=== PATIENT | female | born 1950 | race Caucasian/White ===

== ENCOUNTER 2016-11-08 21:36 | Emergency (ER) | payer OTHER ==
--- NOTE | 2016-11-08 22:50 | PROVIDER DOCUMENTATION ---
HPI-EENT General - General Source: patient - History of Present Illness-EENT General EENT Location: reports: facial Quality of Pain: reports: aching, pressure Severity: reports: severe Onset/Duration: reports: other (2 weeks) Timing: reports: still present Prearrival Treatment: Initiated prescription meds Associated Symptoms: reports: nasal congestion/drainage. denies: cough, sore throat <Hero Tian - Last Filed: 11/08/16 23:01> <Get Holt - Last Filed: 11/08/16 23:03> - General Chief Complaint: Headache Stated Complaint: HEADACHE Time Seen by Provider: 11/08/16 22:37 Allergies/Adverse Reactions: Patient Allergies Allergy/AdvReac Type Severity Reaction Status Date / Time Iodinated Contrast Media - Allergy Severe ANAPHYLAXIS Verified 11/08/16 22:37 Oral and Sulfa (Sulfonamide Allergy Severe "MAKES ME Verified 11/08/16 22:37 Antibiotics) VERY ILL" codeine Allergy Unknown Verified 11/08/16 22:37 Penicillins AdvReac Severe BREAKS ME Verified 11/08/16 22:37 OUT; ITCHING phenytoin sodium * AdvReac Severe "MAKES ME Verified 11/08/16 22:37 [From Dilantin] CRAZY" phenytoin sodium extended * AdvReac Severe "MAKES ME Verified 11/08/16 22:37 [From Dilantin] CRAZY" cimetidine [From Tagamet] AdvReac Unknown Verified 11/08/16 22:37 cimetidine HCl * AdvReac Unknown Verified 11/08/16 22:37 [From Tagamet] Home Medications: Home Medication List Medication Instructions Recorded Confirmed Last Taken Type SIMVAstatin [Zocor] 40 mg PO QHS 12/13/13 01/03/16 11/07/16 History Pantoprazole [Protonix] 40 mg PO QAM 05/15/15 01/03/16 11/08/16 History Paroxetine [Paxil] 10 mg PO QHS 05/15/15 01/03/16 11/08/16 History Pregabalin [Lyrica] 50 mg PO DAILY 05/15/15 01/03/16 11/07/16 History Ondansetron Odt [Zofran 4 mg Odt] 4 mg PO Q6H PRN PRN #20 tablet 01/03/16 Unknown Rx Tramadol HCl [Ultram] 50 mg PO BID PRN #10 tablet 10/10/16 11/08/16 Rx Azithromycin [Zithromax Z-Henrique] 250 mg PO DIRECTED 11/08/16 11/08/16 11/08/16 History Budesonide [Uceris] 9 mg PO DAILY 11/08/16 11/08/16 11/08/16 History Cefprozil 250 mg PO DAILY 11/08/16 11/08/16 11/08/16 History Levofloxacin [Levaquin] 750 mg PO DAILY #7 tablet 11/08/16 Unknown Rx Pseudoephedrine HCl [Sudafed 12 120 mg PO BID PRN #20 tablet.er 11/08/16 Unknown Rx Hour] Tramadol [Ultram] 1 - 2 tab PO Q8H PRN PRN #30 tablet 11/08/16 Unknown Rx - History of Present Illness-EENT General Nature of Presenting Problem: Pt is a 66 y/o F complains of a sinus pressure and headache. Pt says she has started a 2nd round of antibiotics for sinus infection. (Hero Tian) Review of Systems - Adult - REVIEW OF SYSTEMS - ADULT Constitutional: denies: chills, fever Eyes: denies: decreased vision, double vision, eye pain Ears, Nose, Mouth & Throat: reports: sinus problem, other (sinus pressure). denies: ear pain, throat pain Cardiovascular: reports: no symptoms reported Respiratory: reports: no symptoms reported Gastrointestinal: reports: no symptoms reported Genitourinary: reports: no symptoms reported Musculoskeletal: reports: no symptoms reported Integumentary: reports: no symptoms reported Neurological: reports: no symptoms reported Psychiatric: reports: no symptoms reported Endocrine: reports: no symptoms reported Hematologic/Lymphatic: reports: no symptoms reported Allergic/Immunologic: reports: no symptoms reported All Other Systems: Reviewed and Negative <Hero Tian - Last Filed: 11/08/16 23:01> Past History - Adult - PAST MEDICAL HISTORY-ADULT Review of Records: reports: Old Records Reviewed, Nursing Assessment Review, Medications Reviewed Major Childhood Illnesses: reports: denies history Cardiovascular: reports: HTN, hyperlipidemia Respiratory: reports: denies history Gastrointestinal: reports: cholelithiasis, other (Awan's esphogas) Obstetrical/Gynecological: reports: denies history Genitourinary: reports: denies history Musculoskeletal: reports: arthritis, chronic pain, fibromyalgia, 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 hand) Neurological: reports: denies history Endocrine/Immune: reports: denies history Other Conditions: reports: denies history - PRIOR SURGERIES/PROCEDURES Surgical/Procedure History: reports: cholecystectomy, hysterectomy, orthopedic ( extremity) - IMMUNIZATION STATUS Childhood Immunizations: See Nurse Assessment Flu Vaccine: See Nurse Assessment - FAMILY HISTORY Family History: reviewed, not pertinent <Hero Tian - Last Filed: 11/08/16 23:01> Physical Exam- EENT - Physical Exam EENT Initial Vital Signs Reviewed: Yes General Appearance: appears well, alert, no apparent distress Eye Exam: bilateral eye: normal inspection, PERRL, EOMI Ear Exam: bilateral ear: auricle normal, canal normal, TM normal Nasal Exam: sinus tenderness. negative: active bleeding, discharge Throat Exam: normal mouth inspection, pharynx normal Neck: non-tender, full range of motion, supple, normal inspection Respiratory: lungs clear, normal breath sounds, no pleuratic chest pain, no respiratory distress, no accessory muscle use Cardiovascular: normal peripheral pulses, regular rate, rhythm Abdominal Exam: normal bowel sounds, non tender, soft Back Exam: normal inspection, no CVA tenderness, no vertebral tenderness Extremity: normal range of motion, non-tender, normal gait, normal inspection Integumentary: normal color, normal turgor, warm/dry Neurologic: grossly normal, no motor/sensory deficits Psych/Mental Status: normal mood/affect, normal thought content, normal thought process, oriented x 3 <Hero Tian - Last Filed: 11/08/16 23:01> Progress <Hero Tian - Last Filed: 11/08/16 23:01> <Get Holt - Last Filed: 11/08/16 23:03> - PLAN OF CARE/RESULTS Progress/Plan/Lab Results: Orders Category Date Time Status Levofloxacin [Levaquin] Med 11/08/16 22:57 Discontinued 750 mg PO NOW ONE Oxycodone/APAP 10 mg/325 mg [Percocet-10] Med 11/08/16 22:57 Discontinued 1 each PO NOW ONE Pseudoephedrine E.r. [Sudafed 12-Hour] Med 11/08/16 22:56 Discontinued 120 mg PO NOW ONE Vital Signs Temp Pulse Resp BP Pulse Ox 11/08/16 21:40 98 F 77 18 155/99 98 Iodinated Contrast Media - Oral and Allergy (Severe, Verified 11/08/16 22:37) ANAPHYLAXIS Sulfa (Sulfonamide Antibiotics) Allergy (Severe, Verified 11/08/16 22:37) "MAKES ME VERY ILL" codeine Allergy (Verified 11/08/16 22:37) Unknown "I hallucinate" Penicillins Adverse Reaction (Severe, Verified 11/08/16 22:37) BREAKS ME OUT; ITCHING phenytoin sodium * [From Dilantin] Adverse Reaction (Severe, Verified 11/08/16 22:37) "MAKES ME CRAZY" phenytoin sodium extended * [From Dilantin] Adverse Reaction (Severe, Verified 11/08/16 22:37) "MAKES ME CRAZY" cimetidine [From Tagamet] Adverse Reaction (Verified 11/08/16 22:37) Unknown cimetidine HCl * [From Tagamet] Adverse Reaction (Verified 11/08/16 22:37) Unknown SIMVAstatin [Zocor] 40 mg PO QHS 12/13/13 Pantoprazole [Protonix] 40 mg PO QAM 05/15/15 Paroxetine [Paxil] 10 mg PO QHS 05/15/15 Pregabalin [Lyrica] 50 mg PO DAILY 05/15/15 Ondansetron Odt [Zofran 4 mg Odt] 4 mg PO Q6H PRN PRN #20 tablet 01/03/16 Tramadol HCl [Ultram] 50 mg PO BID PRN #10 tablet 10/10/16 Azithromycin [Zithromax Z-Henrique] 250 mg PO DIRECTED 11/08/16 Budesonide [Uceris] 9 mg PO DAILY 11/08/16 Cefprozil 250 mg PO DAILY 11/08/16 Levofloxacin [Levaquin] 750 mg PO DAILY #7 tablet 11/08/16 Pseudoephedrine HCl [Sudafed 12 Hour] 120 mg PO BID PRN #20 tablet.er 11/08/16 Tramadol [Ultram] 1 - 2 tab PO Q8H PRN PRN #30 tablet 11/08/16 (Hero Tian) Departure <Hero Tian - Last Filed: 11/08/16 23:01> - Departure Time of Disposition Order: 23:00 Certified Medical Emergency: Emergent <Get Holt - Last Filed: 11/08/16 23:03> - Departure DIAGNOSIS: Sinusitis, acute ethmoidal Qualifiers: Recurrence: non-recurrent Qualified Code(s): J01.20 - Acute ethmoidal sinusitis , unspecified Disposition: HOME 01 Condition: Fair Additional Instructions: NASACORT 2 SPRAYS EACH SIDE TWICE A DAY SUDAFED 12 HOUR TWICE A DAY HOT COMPRESSES TO FACE VAPORIZER BY BED AT NIGHT NO ANTIHISTAMINES Prescriptions: Levofloxacin [Levaquin] 750 mg PO DAILY #7 tablet Pseudoephedrine HCl [Sudafed 12 Hour] 120 mg PO BID PRN #20 tablet.er PRN Reason: Congestion Tramadol [Ultram] 1 - 2 tab PO Q8H PRN PRN #30 tablet PRN Reason: Pain Referrals: Richard Pereyra MD [Primary Care Provider] - Attestation - Scribe Verification/Attestation Scribe:: Hero Tian Acting as Scribe for:: Get Holt Scribe documention review:: This chart was documented by a scribe and accurately reflects the service the provider performed and the decisions made by the provider. <Hero Tian - Last Filed: 11/08/16 23:01> Physician Attestation
[2016-11-08] MEDS ORDERED: SUDAFED 12-HOUR PO ONE (22:56)
[2016-11-08] MEDS ORDERED: PERCOCET-10 PO ONE (22:57)
[2016-11-08] MEDS ORDERED: LEVAQUIN PO ONE (22:57)
[2016-11-08 23:25] VITALS: BP 164/88
== END 2016-11-08 23:25 | disposition home or self-care (01) ==
LOC: P.ED 21:36
DX: J01.20 Acute ethmoidal sinusitis, unspecified (principal); R51 Headache; R09.81 Nasal congestion; I10 Essential (primary) hypertension; E78.5 Hyperlipidemia, unspecified; M19.90 Unspecified osteoarthritis, unspecified site; G89.29 Other chronic pain; M79.7 Fibromyalgia; Z79.899 Other long term (current) drug therapy
CPT/HCPCS: 99282